=== PATIENT | female | born 1945 | race Caucasian/White ===

== ENCOUNTER 2016-10-22 19:17 | Emergency (ER) | payer MEDICARE, OTHER ==
[~2016-10-22] VITALS: Ht 154.9 cm; Wt 76.7 kg
--- NOTE | ~2016-10-22 | CR243 ---
[facility] A Service of [facility] & [facility] RADIOLOGY TEXT RESULTS PATIENT: ESTEE BEAL LOCATION: [facility] : 47 UNIT #: [id number] AGE: [address]: DREW NOBLE APRN SEX: F ORDER DR: [id number] [facility] [address] [place], [place] [address] [id number] E MR#: [id number] Acc #: [id number] NAME: ESTEE BEAL : 1945 SEX: F STUDY DATE/TIME: 10/22/2016 23:32 UNIT: [facility] ROOM: STUDY DESCRIPTION: CR Thoracic Spine 3 Views Attending Physician: Drew Noble Aprn Ordering Physician: Drew Noble Aprn Primary Care Physician: [facility], MEDICAL IMAGING REPORT This report is preliminary unless electronic signature is present EXAM Thoracic spine, 10/22/2016 HISTORY 70-year-old female in the ED complaining of thoracic back pain and low back pain after a fall down stairs today. TECHNIQUE Three-view thoracic spine series. FINDINGS The examination is negative. No acute or chronic fracture deformity or other osseous lesion is demonstrated. IMPRESSION Negative thoracic spine series. Dictated by... Aniceto Penaloza M.D. THIS IS AN ELECTRONICALLY VERIFIED REPORT Aniceto Penaloza M.D. at 10/23/2016 5:59 AM VANESSA/shiva TD: 10/23/2016 04:04 JOB #: [id number] MEDICAL IMAGING REPORT Page 1 of 1 COPY
--- NOTE | ~2016-10-22 | CR253 ---
[facility] A Service of [facility] & [facility] / [facility] RADIOLOGY TEXT RESULTS PATIENT: ESTEE BEAL LOCATION: [facility] : 47 UNIT #: [id number] AGE: [address]: DREW NOBLE APRN SEX: F ORDER DR: [id number] [facility] [address] [place], [place] [address] [id number] E MR#: [id number] Acc #: [id number] NAME: ESTEE BEAL : 1945 SEX: F STUDY DATE/TIME: 10/22/2016 23:32 UNIT: [facility] ROOM: STUDY DESCRIPTION: CR Tibia and Fibula 2 Views Rt Attending Physician: Drew Noble Aprn Ordering Physician: Drew Noble Aprn [facility] REPORT This report is preliminary unless electronic signature is present EXAM Right tibia-fibula series, 10/22/2016 HISTORY 70-year-old female in the ED with right leg pain after a fall down stairs today. TECHNIQUE AP and lateral radiographs of the right tibia and fibula. FINDINGS Old healed distal fibula fracture with hardware in place. No acute fracture, dislocation or additional osseous abnormality is demonstrated. IMPRESSION 1. No acute osseous abnormality. 2. Previous ORIF healed distal fibula fracture. Dictated by... Aniceto Penaloza M.D. THIS IS AN ELECTRONICALLY VERIFIED REPORT Aniceto Penaloza M.D. at 10/23/2016 5:59 AM VANESSA/shiva TD: 10/23/2016 04:05 JOB #: [id number] MEDICAL IMAGING REPORT Page 1 of 1 COPY
--- NOTE | ~2016-10-22 | CR150 ---
[facility] of [facility] RADIOLOGY TEXT RESULTS PATIENT: ESTEE BEAL LOCATION: [facility] : 47 UNIT #: [id number] AGE: [address]: DREW NOBLE APRN SEX: F ORDER DR: [id number] [facility] [address] [place], [place] [address] [id number] E MR#: [id number] Acc #: [id number] NAME: ESTEE BEAL : 1945 SEX: F STUDY DATE/TIME: 10/22/2016 23:32 UNIT: [facility] ROOM: STUDY DESCRIPTION: CR Hip Min 2 Views Lt Attending Physician: Drew Noble Aprn Ordering Physician: Drew Noble Aprn Primary Care Physician: [facility], MEDICAL IMAGING REPORT This report is preliminary unless electronic signature is present EXAM Left hip, 10/22/2016 HISTORY 70-year-old female in the ED complaining of back pain and bilateral hip pain after fall down stairs today. TECHNIQUE Two-view left hip series. FINDINGS No fracture, dislocation or other acute osseous abnormality is demonstrated. IMPRESSION Negative left hip series. Dictated by... Aniceto Penaloza M.D. THIS IS AN ELECTRONICALLY VERIFIED REPORT Aniceto Penaloza M.D. at 10/23/2016 5:59 AM VANESSA/shiva TD: 10/23/2016 04:07 JOB #: [id number] MEDICAL IMAGING REPORT Page 1 of 1 COPY
--- NOTE | ~2016-10-22 | CR151 ---
[facility] A Service of [facility] & [facility] / [facility] RADIOLOGY TEXT RESULTS PATIENT: ESTEE BEAL LOCATION: [facility] : 47 UNIT #: [id number] AGE: [address]: DREW NOBLE APRN SEX: F ORDER DR: [id number] [facility] [address] [place], [place] [address] [id number] E MR#: [id number] Acc #: [id number] NAME: ESTEE BEAL : 1945 SEX: F STUDY DATE/TIME: 10/22/2016 23:32 UNIT: [facility] ROOM: STUDY DESCRIPTION: CR Hip Min 2 Views Rt Attending Physician: Drew Noble Aprn Ordering Physician: Drew Noble Aprn Primary Care Physician: [facility] MEDICAL IMAGING REPORT This report is preliminary unless electronic signature is present EXAM Right hip 10/22/2016 HISTORY 70-year-old female in the ED complaining of back pain and bilateral hip pain after fall down stairs today. TECHNIQUE Two-view right hip series. FINDINGS The examination is negative. No fracture, dislocation or other acute osseous abnormality. IMPRESSION Negative right hip series. Dictated by... Aniceto Penaloza M.D. THIS IS AN ELECTRONICALLY VERIFIED REPORT Aniceto Penaloza M.D. at 10/23/2016 5:59 AM VANESSA/reuben TD: 10/23/2016 04:15 JOB #: [id number] MEDICAL IMAGING REPORT Page 1 of 1 COPY
--- NOTE | ~2016-10-22 | CT52 ---
[facility] A Service of [facility] / [facility] RADIOLOGY TEXT RESULTS PATIENT: ESTEE BEAL LOCATION: [facility] : 47 UNIT #: [id number] AGE: [address]: DREW NOBLE APRN SEX: F ORDER DR: [id number] [facility] [address] [place], [place] [address] [id number] E MR#: [id number] Acc #: [id number] NAME: ESTEE BEAL : 1945 SEX: F STUDY DATE/TIME: 10/22/2016 23:16 UNIT: [facility] ROOM: STUDY DESCRIPTION: CT Cervical Spine Wo Cont Attending Physician: Drew Noble Aprn Ordering Physician: Drew Noble Aprn Primary Care Physician: [facility] IMAGING REPORT This report is preliminary unless electronic signature is present EXAM CT cervical spine 10/22/2016 HISTORY 70-year-old female in the ED complaining of neck pain after injury. Fell down stairs today prior to arrival. TECHNIQUE Thin-section axial CT images from the skull base through the mid body of T2. Sagittal and coronal reconstructed images. This CT exam was performed with one or more of the following radiation dose reduction techniques: automatic control, adjustment of mA and/or kV according to patient size, and iterative reconstruction. FINDINGS No fracture or other acute osseous abnormality is demonstrated. Advanced degenerative disc space changes at C5-6 and C6-7. Mild to mild degenerative disc space narrowing at the C4-5 and C7-T1. Advanced degenerative facet arthropathy on the left at C3-4. Cervical vertebral alignment is normal. Reversal of cervical lordosis is nonspecific but likely positional. IMPRESSION 1. No fracture or other acute osseous abnormality is demonstrated. 2. Multilevel degenerative disc disease, greatest at C5-6 and C6-7. Dictated by... Aniceto Penaloza M.D. THIS IS AN ELECTRONICALLY VERIFIED REPORT Aniceto Penaloza M.D. at 10/23/2016 5:59 AM RGW/rnr [facility] A Service of [facility] & [facility] / [facility] RADIOLOGY TEXT RESULTS PATIENT: ESTEE BEAL LOCATION: [facility] : 47 UNIT #: [id number] AGE: [address]: DREW NOBLE APRN SEX: F ORDER DR: TD: 10/23/2016 03:57 JOB #: [id number] MEDICAL IMAGING REPORT Page 1 of 1 COPY
--- NOTE | ~2016-10-22 | CR181 ---
[facility] A Service of [facility] RADIOLOGY TEXT RESULTS PATIENT: ESTEE BEAL LOCATION: [facility] : 47 UNIT #: [id number] AGE: [address]: DREW NOBLE APRN SEX: F ORDER DR: [id number] [facility] [address] [place], [place] [address] [id number] E MR#: [id number] Acc #: [id number] NAME: ESTEE BEAL : 1945 SEX: F STUDY DATE/TIME: 10/22/2016 23:31 UNIT: [facility] ROOM: STUDY DESCRIPTION: CR Lumbar Spine 2 or 3 Views Attending Physician: Drew Noble Aprn Ordering Physician: Drew Noble Aprn [facility] REPORT This report is preliminary unless electronic signature is present EXAM Lumbar spine series, 10/22/2016 HISTORY 70-year-old female in the ED after injury. Fell down stairs today. She complains of back pain and bilateral hip pain. TECHNIQUE Three-view lumbar spine series. FINDINGS No fracture or other acute osseous abnormality. Moderately severe degenerative disc space narrowing at L4-5 with more mild degenerative disc space narrowing throughout the remainder of the lumbar spine. Advanced degenerative facet arthropathy at L4-5 and L5-S1 with grade I anterolisthesis at L4-5. IMPRESSION 1. No fracture or other acute osseous abnormality. 2. Multilevel degenerative disc disease, greatest at L4-5. 3. Severe lower lumbar degenerative facet arthropathy with grade I anterolisthesis at L4-5. Dictated by... Aniceto Penaloza M.D. THIS IS AN ELECTRONICALLY VERIFIED REPORT Aniceto Penaloza M.D. at 10/23/2016 5:59 AM VANESSA/shiva TD: 10/23/2016 04:01 [facility] A Service of [facility] RADIOLOGY TEXT RESULTS PATIENT: ESTEE BEAL [id number] : 47 UNIT #: [id number] AGE: [address]: DREW NOBLE APRN SEX: F ORDER DR: BRIANA #: [id number] MEDICAL IMAGING REPORT Page 1 of 1 COPY
[~2016-10-22 19:17] MED LIST: AMLODIPINE BESYL5 MG PO; AMOXIL500 M1 PO; AVANDIA; CELEBREX PO; FLEXERIL10 MG PO; GLUCOTROL XL; HUMALOG MI100 UNIT/5 SQ; HUMALOG100 U/ML INJ; HYDROCODON-ACE1 EAC7 PO; KETOPROFEN PO; LIPITOR; LOTRIMIN30 GM TOP; LYRICA50 MG PO; METFORMIN PO; NEXIUM PO; NORCO1 TAB 10/3 PO; OCUFLOX10 ML AS; PHENERGAN PO; PORTLAND PHARMACY; PRAVASTATIN SOD40 MG PO; SERTRALINE HCL100 MG PO; TRAMADOL HCL50 M1 PO; UNIVASC7.5 MG; VICODIN 5/1 TAB 5/50 PO; VISTARIL PO; ZOFRAN PO; ZOLOFT PO
== END 2016-10-23 00:55 | disposition home or self-care (01) ==
LOC: CED 19:17
DX: S13.4XXA Sprain of ligaments of cervical spine, initial encounter (principal); S23.3XXA Sprain of ligaments of thoracic spine, initial encounter; S33.5XXA Sprain of ligaments of lumbar spine, initial encounter; S80.11XA Contusion of right lower leg, initial encounter; I10 Essential (primary) hypertension; M19.90 Unspecified osteoarthritis, unspecified site; E11.9 Type 2 diabetes mellitus without complications; F17.210 Nicotine dependence, cigarettes, uncomplicated; Z90.49 Acquired absence of other specified parts of digestive tract; W01.0XXA Fall on same level from slipping, tripping and stumbling without subsequent striking against object, initial encounter; Y92.009 Unspecified place in unspecified non-institutional (private) residence as the place of occurrence of the external cause
CPT/HCPCS: 72072; 72100; 72125; 73502; 73590; 99284